=== PATIENT | male | born 1960 | race Caucasian/White ===

== ENCOUNTER 2017-06-28 07:10 | Day surgery (SDC) | payer OTHER ==
[~2017-06-28] VITALS: Ht 170.2 cm; Wt 73.0 kg
[~2017-06-28 07:10] MED LIST: BENA40TA41 PO
[2017-06-28] MEDS ORDERED: CEFAZOLIN 2 GM/50 ML (PMX) 50 ML IVPB ONE (08:30)
[2017-06-28 09:07] VITALS: BP 145/93; PULSE 96; RESP 20
[2017-06-28 09:09] VITALS: Ht 170.2 cm; Wt 73.0 kg
[2017-06-28] MEDS ORDERED: POLYMYXIN/BACITRACIN 1L IRRIG ONE (09:10)
--- NOTE | 2017-06-28 09:11 | HPN ---
Date/Time of Note Date/Time of Note DATE: 06/28/17 TIME: 09:11 Interval H&P Admission Note Pt. seen H&P reviewed: No system changes SANJAY GARCIA DPM Jun 28, 2017 09:11
[2017-06-28] MEDS ORDERED: MIDAZOLAM 1 MG/ML 2 ML INJ ONE (09:14)
[2017-06-28] MEDS ORDERED: PROPOFOL 20 ML ONE (09:14)
[2017-06-28] MEDS ORDERED: LIDOCAINE 1% (MDV) 20 ML INJ ONE (09:14)
[2017-06-28] MEDS ORDERED: ROPIVACAINE 0.2% 20 ML VIAL ONE (09:14)
[2017-06-28] MEDS ORDERED: CEFAZOLIN 1 GM INJ ONE (09:30)
[2017-06-28] MEDS ORDERED: DEXAMETHASONE 4 MG/ML 1 ML INJ ONE (09:32)
[2017-06-28] MEDS ORDERED: ONDANSETRON 4 MG INJ ONE (09:32)
[2017-06-28] MEDS ORDERED: KETOROLAC 30 MG INJ ONE (09:45)
[2017-06-28 11:28] VITALS: BP 159/89; RESP 20
--- NOTE | 2017-06-28 11:47 | RADRPT ---
PROCEDURE: XR Right Foot. CLINICAL INDICATION: Right foot pain. Postop. TECHNIQUE: 3 views. Frontal, lateral, and oblique. COMPARISON: None. FINDINGS: There is no fracture or dislocation. There is lysis involving the second metatarsal phalangeal joint with overlying soft tissue swelling. There is no other lytic lesion and the articular surfaces are otherwise tab. The soft tissues are otherwise normal. There is no radiopaque foreign body. IMPRESSION: 1. Lysis involving the second metatarsal phalangeal joint. 2. Otherwise unremarkable images of the right foot. RPTAT: QQ .Elijah Dempsey MD, MD Date Time Electronically viewed and signed by .Elijah Dempsey MD, on 06/28/2017 11:47 .R/
[2017-06-28] MEDS ORDERED: hydrALAzine 5 MG IV PRN (12:00)
[2017-06-28] MEDS ORDERED: HYDROMORPHONE IV PRN (12:00)
[2017-06-28] MEDS ORDERED: LABETALOL 5 MG IV PRN (12:00)
--- NOTE | 2017-06-28 13:08 | OPPN ---
Date/Time of Note Date/Time of Note DATE: 06/28/17 TIME: 10:12 Operative Report Preoperative Diagnosis Right second MPJ abscess Osteomyelitis of the right second MPJ Postoperative Diagnosis Right second MPJ abscess Osteomyelitis of the right second MPJ Operation/Procedure Performed Incision and drainage right second MPJ Debridement of right second MPJ Bone culture right second MPJ Anesthesia Type: general Estimated blood loss: minimal Transfusion Required: no Specimens Right second MPJ debrided tissue Grafts/Implants: none Complications: no SANJAY GARCIA DPM Jun 28, 2017 11:19
== END 2017-06-28 12:15 | disposition home or self-care (01) ==
LOC: SDS 07:10
PROVIDERS: ATTEND Podiatrist Foot & Ankle Surgery
DX: M67.471 Ganglion, right ankle and foot (principal); L02.611 Cutaneous abscess of right foot; M24.9 Joint derangement, unspecified; F17.200 Nicotine dependence, unspecified, uncomplicated
CPT/HCPCS: 28090; 73630; 87070; 87075; 87102; 87116; 88304; J0690; J1100; J1885; J2250; J2405; J2795; Z7512; Z7610